=== PATIENT | female | born 1970 | race Caucasian/White ===

== ENCOUNTER 2019-07-09 01:06 | Emergency (ER) | payer BC ==
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
[2019-07-09 01:44] LABS: Appearance CLOUDY (CLEAR); Bacteria FEW /HPF (NEGATIVE); Bilirubin NEGATIVE (NEGATIVE); Blood SMALL Ery/ul (0-5); Epithelial Cells FEW /HPF (FEW); Glucose NEGATIVE (NEGATIVE); Ketones NEGATIVE (NEGATIVE); Leukocyte Esterase TRACE (NEGATIVE); Mucus SLIGHT /HPF (NEGATIVE); Nitrite NEGATIVE (NEGATIVE); Protein,Urine Dip NEGATIVE (Negative); Specific Gravity 1.008 (1.005-1.025); Urobilinogen NEGATIVE mg/dL (0-1)
[2019-07-09 01:48] LABS: Amphetamine,Urine NEGATIVE (NEGATIVE); Barbiturate,Urine NEGATIVE (NEGATIVE); Benzodiazepine,Urine NEGATIVE (NEGATIVE); Cocaine,Urine NEGATIVE (NEGATIVE); Methadone,Urine NEGATIVE (NEGATIVE); Opiate,Urine NEGATIVE (NEGATIVE); PCP,Urine NEGATIVE (NEGATIVE); THC,Urine NEGATIVE (NEGATIVE)
[2019-07-09] MEDS ORDERED: Sodium Chloride 0.9% 1000 ML 1,000 ML IV STA ×3 (02:04→03:22)
[2019-07-09] MEDS ORDERED: Sodium Chloride 0.9% 1000 ML 1,000 ML ONE ×3 (02:06→03:23)
[2019-07-09 02:13] LABS: Absolute Neutrophil Ct (ANC) 5.86 (1.4-6.9); BASOPHIL % 0.7 % (0.0-0.4); Basophil (Absolute #) 0.06 (0-0.4); Eosinophil % 0.8 % (0.00-5.0); Eosinophil (Absolute #) 0.07 (0-0.5); Hemoglobin 15.6 gm/dl (12.0-16.0); Lymphocyte (Absolute #) 2.42 (1.0-4.6); Lymphocytes % 27.3 % (24.0-44.0); Mean Cell Volume 107.4 fl (78-100); Mean Corpuscular Hemoglobin 37.2 pg (26-32); Mean Corpuscular Hgb Concent. 34.7 g/dl (32-36); Mean Platelet Volume 9.6 fl (6-9.5); Monocyte (Absolute #) 0.47 (0.0-1.3); Monocytes % 5.3 % (0.0-12.0); Neutrophil % 65.9 % (36.0-66.0); Platelet Count 328 K/mm3 (150-450); Red Blood Count 4.19 M/mm3 (4.1-5.4); Red Cell Distribution Width 12.4 % (11.5-14.0); White Blood Count 8.9 K/mm3 (4.0-10.5)
[2019-07-09 02:19] LABS: ALKALINE PHOSPHATASE 115 U/L (38-126); ANION GAP 23.9 MEQ/L (5-15); BLOOD UREA NITROGEN 6 mg/dL (7-17); CHLORIDE 103 mmol/L (98-107); Calcium 10.2 mg/dL (8.4-10.2); Carbon Dioxide 25 mmol/L (22-30); Creatinine 1 0.65 mg/dL (0.52-1.04); Glucose 138 mg/dL (74-106); MAGNESIUM 2.1 mg/dL (1.6-2.3); Potassium 4.9 mmol/L (3.5-5.1); SGOT/AST 291 U/L (14-36); SGPT/ALT 161 U/L (0-35); SODIUM 147 mmol/L (137-145); Total Protein 9.2 g/dL (6.3-8.2)
[2019-07-09 02:23] LABS: Lactic Acid 2.8 (0.4-2.0)
[2019-07-09] MEDS ORDERED: THERAGRAN MULTIVITAMIN PO ONE (03:13)
[2019-07-09] MEDS ORDERED: THIAMINE 200 MG/2 ML IM ONE (03:13)
[2019-07-09] MEDS ORDERED: THIAMINE 200 MG/2 ML ONE (03:21)
[2019-07-09 04:24] VITALS: BP 131/95; PULSE 121; O2SAT 97
== END 2019-07-09 04:28 | disposition home or self-care (01) ==
LOC: ED 01:06
DX: F10.920 Alcohol use, unspecified with intoxication, uncomplicated (principal); E87.2 Acidosis
CPT/HCPCS: 36000; 36415; 80053; 80307; 81001; 83605; 83735; 85025; 87086; 96360; 96361; 96372; 99284; A9270-GY; G0480